=== PATIENT | female | born 1985 | race Hispanic/Latino ===

== ENCOUNTER 2020-05-04 12:45 | Emergency (ER) | payer BC ==
[~2020-05-04] VITALS: Ht 170.2 cm; Wt 113.4 kg
[2020-05-04] MEDS ORDERED: IBUPROFEN 600 MG TAB PO NR (13:19)
[2020-05-04] MEDS ORDERED: IBUPROFEN 600 MG TAB ONE (13:35)
--- NOTE | 2020-05-04 14:02 | Diagnostic Imaging Report ---
FOOT 3 VIEW RT - HOPD, ANKLE 2 VIEW RT - HOPD - Multiple views HISTORY: ^fall COMPARISON: None available. FINDINGS: Bones: No acute displaced fracture. Osseous alignment is within normal limits. Joints: The joint spaces are well-maintained. Soft tissues: The soft tissues appear unremarkable. IMPRESSION: No acute radiographic abnormality. Signed by: Derek Pierce MD on 05/04/2020 1:58 PM
--- NOTE | 2020-05-04 14:31 | Emergency Department Note ---
History of Present Illnes History of Present Illness Chief Complaint: Extremity Trauma/Pain History of Present Illness This is a 34 year old female Chief Complaint Comment Reports that he fell from standing onto the floor after tripping and falling, unwitnessed fall at home. Family heard a loud thump and found him on the floor, family gave him a tramadol last night and it makes him a little confused. Family states that he was confused this morning and did not know what he was doing. Pt is now having lower back pain. . Historian: Patient Arrival Mode: Car Onset (how long ago): day(s) (1) Location: RIGHT ANKLE Quality: SHARP Radiation: Denies non-radiation, Denies back, Denies neck, Denies extremity, Denies abdomen, Denies periumbilical, Denies flank, Denies proximal, Denies distal, Denies other Severity: moderate Onset quality: sudden Duration (how long): day(s) (1) Timing of current episode: constant Progression: worsening Chronicity: new Context: Denies recent illness, Denies recent surgery, Denies recent immobilization, Denies recent travel, Denies trauma/injury, Denies new medications, Denies hx of DVT/PE, Denies non-compliance w/ medications, Denies other Relieving factors: rest Exacerbating factors: movement Associated symptoms: Denies denies other symptoms, Denies confusion, Denies chest pain, Denies cough, Denies diaphoresis, Denies fever/chills, Denies headaches, Denies loss of appetite, Denies malaise, Denies nausea/vomiting, Denies rash, Denies seizure, Denies shortness of breath, Denies syncope, Denies weakness, Denies other Treatments prior to arrival: none Past Medical/Family History Physician Review I have reviewed the patient's past medical and family history. Any updates have been documented here. Past Medical History Recent Fever: No Clinical Suspicion of Infectio: No New/Unexplained Change in Ment: No Past Medical History: None Past Surgical History: Cholecysctectomy, Social History Smoking Cessation: Never Smoker Counseling Performed: No Alcohol Use: Occasional Any Illegal Drug Use: No Physically hurt or threatened: No Other Any Pre-Existing Lines (PICC,: No Review of Systems Review of Systems Constitutional: Reports no symptoms EENTM: Reports no symptoms Cardiovascular: Reports no symptoms Respiratory: Reports no symptoms Gastrointestinal: Reports no symptoms Genitourinary: Reports no symptoms Musculoskeletal: Reports as per HPI Integumentary: Reports no symptoms Neurological: Reports no symptoms Psychological: Reports no symptoms Endocrine: Reports no symptoms Hematological/Lymphatic: Reports no symptoms Physical Exam Related Data Allergies: Coded Allergies: hydrocodone (Verified Allergy, Unknown, made her go crazy and out of her body experience, 05/04/20) can take tylenol ketamine (Verified Allergy, Unknown, 05/04/20) latex (Verified Allergy, Unknown, 05/04/20) Triage Vital Signs Vital Signs Date Time Temp Pulse Resp B/P (MAP) Pulse Ox O2 Delivery O2 Flow Rate FiO2 05/04/20 12:55 98.8 87 18 117/69 98 Room Air Vital signs reviewed: Yes Physical Exam CONSTITUTIONAL Constitutional: Present well-developed, Present well-nourished HENT HENT: Present normocephalic, Present atraumatic, Present oropharynx clear/mois t, Present nose normal HENT L/R: Present left ext ear normal, Present right ext ear normal EYES Eyes: Reports PERRL, Reports conjunctivae normal NECK Neck: Present ROM normal PULMONARY Pulmonary: Present effort normal, Present breath sounds normal CARDIOVASCULAR Cardiovascular: Present regular rhythm, Present heart sounds normal, Present capillary refill normal, Present normal rate GASTROINTESTINAL Abdominal: Present soft, Present nontender, Present bowel sounds normal GENITOURINARY Genitourinary: Present exam deferred SKIN Skin: Present warm, Present dry MUSCULOSKELETAL Musculoskeletal: Present other (TENDERNESS RIGHT ANKLE) NEUROLOGICAL Neurological: Present alert, Present oriented x 3, Present no gross motor or sensory deficits PSYCHOLOGICAL Psychological: Present mood/affect normal, Present judgement normal Results Imaging Imaging results reviewed: Yes Procedures Orthopedic Splinting/Casting Side: right Lower extremity injury locatio: ankle Lower extremity immobilizer: posterior splint Assessment & Plan Medical Decision Making MDM FDRACTURE CONTUSION Reassessment Reassessment BETTER Assessment & Plan Final Impression: (1) Acute pain due to trauma (2) Right ankle sprain Depart Disposition: HOME, SELF-CARE Last Vital Signs Date Time Temp Pulse Resp B/P (MAP) Pulse Ox O2 Delivery O2 Flow Rate FiO2 05/04/20 12:55 98.8 87 18 117/69 98 Room Air Medications in the ED Ibuprofen 600 mg ONCE PO Last administered on 05/04/20at 13:42; Admin Dose 600 MG; Start 9/6/20 at 13:19; Stop 05/04/20 at 14:59 Ibuprofen 600 mg STK-MED ONCE .ROUTE ; Start 05/04/20 at 13:35; Stop 05/04/20 at 13:29; Status DC YUMIKO DEL ANGEL MD May 04, 2020 14:31
[2020-05-04] MEDS ORDERED: NAPROSYN500 MG PO (14:32)
--- OUTSIDE RECORDS SUMMARY | 2020-05-04 14:38 | XMS REPORT | Continuity of Care Document ---
Author Author [facility] t Organization [facility] Address 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 Allergies, Adverse Reactions, Alerts Allergy Name Allergy Type Status Severity Reaction(s) Onset Date Inacti ve Date Treating Clinician Comments Source hydrocodone DA Active U 2019-05-06 00:00:00 [facility] ketamine DA Active U 2019-05-06 00:00:00 [facility] latex DA Active U 2019-05-06 00:00:00 [facility] hydrocodone DA Active U 2018-03-27 00:00:00 [facility] acetaminophen DA Active U 2018-03-27 00:00:00 [facility] ketamine DA Active U 2018-03-27 00:00:00 [facility] latex DA Active U 2018-03-27 00:00:00 [facility] Medications This patient has no known medications. Procedures This patient has no known procedures. Results Test Description Test Time Test Comments Results Result Comments Source ANKLE 2 VIEW RT - HOPD 2020-05-04 13:57:00 [facility] [address] [place], [place] [address] Patient Name: PROSPER FREEMAN MR #: [id number] : 1985 Age/Sex: 34/F Req #: [id number] Adm Physician: Ordered by: YUMIKO DEL ANGEL MD Report #: [id number] Location: [facility] Room/Bed: Procedure: HOPD/ANKLE 2 VIEW RT - HOPD Exam Date: Exam Time: REPORT STATUS: Signed FOOT 3 VIEW RT - HOPD, ANKLE 2 VIEW RT - HOPD - Multiple views HISTORY: fall COMPARISON: None available. FINDINGS: Bones: No acute displaced fracture. Osseous alignment is within normal limits. Joints: The joint spaces are well- maintained. Soft tissues: The soft tissues appear unremarkable. IMPRESSION: No acute radiographic abnormality. Signed by: Derek Cuello MD on 05/04/2020 1:58 PM Dictated By: DEREK CUELLO MD [id number] Transcribed By: CORETTA on 05/04/20 1350 COPY TO: YUMIKO DEL ANGEL MD FOOT 3 VIEW RT - HOPD 2020-05-04 13:57:00 [place] [address] Patient Name: PROSPER FREEMAN MR #: [id number] : 1985 Age/Sex: 34/F Req #: [id number] Adm Physician: Ordered by: YUMIKO DEL ANGEL MD Report #: [id number] Location: [facility] Room/Bed: Procedure: HOPD/FOOT 3 VIEW RT - HOPD Exam Date: Exam Time: REPORT STATUS: Signed FOOT 3 VIEW RT - HOPD, ANKLE 2 VIEW RT - HOPD - Multiple views HISTORY: fall COMPARISON: None available. FINDINGS: Bones: No acute displaced fracture. Osseous alignment is within normal limits. Joints: The joint spaces are well- maintained. Soft tissues: The soft tissues appear unremarkable. IMPRESSION: No acute radiographic abnormality. Signed by: Derek Cuello MD on 05/04/2020 1:58 PM Dictated By: DEREK CUELLO MD 1350 Transcribed By: CORETTA on 05/04/20 1358 COPY TO: YUMIKO DEL ANGEL MD - XR CHEST 1 V 2019-10-24 02:04:00 FAX: Maliha Kang MD [phone] [place]: St: REG FAX: Agnieszka Calixto Name: PROSPER FREEMAN [facility] : 1985 Age/S: 33/F [address] [facility] Unit #: [id number] Loc: [place] [address] Phys: Agnieszka Calixto NP Acct: [id number] Dis Date: Status: REG ER PHONE #: [phone] Exam Date: 10/24/2019 0142 FAX #: [phone] Reason: cough EXAMS: CPT CODE: [id number] XR CHEST 1 V 00471 DICTATION LOCATION: H48 HISTORY: Female, 33 years of age with cough for one month EXAM: CHEST X-RAY, ONE VIEW COMPARISON: Correlation made with thoracic spine x-rays performed 03/27/2018 COMMENT: Frontal view of the chest is provided. No focal infiltrate, consolidation, mass lesion, or effusion is seen. Cardiac silhouette is within normal limits. No acute bony abnormalities. IMPRESSION: No acute infiltrate or effusion. at 0204 Reported and signed by: Nikole Lane MD CC: Maliha Chinchilla MD; Casandra Calixto NP Technologist: Khadra Jade Trnnvrd Date/Time/By: 10/24/2019 (203) : By: DerekW Orig Print D/T: S: 10/24/2019 (207) PAGE 1 Signed Report [facility] 2019-05-11 16:41:00 RUN DATE: 05/11/19 [facility] PAGE 1 RUN TIME: 1642 Specimen Inquiry RUN USER: INTERFACE PATIENT: PROSPER FREEMAN LOC: JaysonSRG U #: [id number] AGE/SX: 33/F ROOM: RE05/10/19REG DR: Marissa Miramontes MD : [birth year] BED: DIS: STATUS: DEP SD TLOC: SPEC #: [id number] RECD: 05/10/19 STATUS: LIZ REZaria #: [id number] PING: 05/10/[address]: Marissa Miramontes MD ENTERED: 05/10/19 SP TYPE: GALLBLADD OTHR DR: Maliha Chinchilla MD ORDERED: GROSS COPIES TO: Marissa Miramontes MD [address] [place], [place] [id number] Maliha Chinchilla MD [address] [place] [address] DUKE RKERS: ABNORMAL TISSUE, GALLBLADDER PROCEDURES: GROSS (05/11/19-1206) TISSUES: GALLBLADDER, NOS CLINICAL HISTORY COLLECTION DATE: 05/10/19 BILIARY COLIC FINAL DIAGNOSIS Gallbladder, cholecystectomy: CHOLELITHIASIS CHRONIC CHOLECYSTITIS CHOLESTEROLOSIS NEGATIVE FOR MALIGNANCY DMW/sm A 85050 CONTINUED ON NEXT PAGE RUN DATE: 05/11/19 [facility] PAGE 2 RUN TIME: 2 Specimen Inquiry RUN USER: INTERFACE SPEC #: [id number] PATIENT: PROSPER FREEMAN #[id number] (Continued) MACROSCOPIC The specimen is received in formalin, labeled with the patient's name, and identified as "gallbladder". It consists of a gallbladder that has been previously incised along the fundus. The specimen measures 6 cm in length with a diameter up to 2.7 cm. A 1.3 cm segment of duct is present. No lymph node is identified at the neck of the gallbladder. Nine green mixed composition stones are present in the specimen container. These measure up to 0.7 cm in diameter. The mucosal surface is pink with numerous yellow flecks and areas of trabeculation in the distal fundus. The gallbladder wall measures up to 0.2 cm in thickness. No discrete nodules or masses are seen. 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 GROSS PERFORMED AT [facility] [address] [place] [address] [phone])[phone] MICROSCOPIC All of the stains, including any controls performed, stain appropriately. MICROSCOPIC PERFORMED AT [facility] [address] [place] [address] [phone])[phone] PERFORMING SITE Diagnosis performed at: [facility], ALONSO [address] [place] [address] [phone] Signed SIGNATURE ON FILE Lorena Guerrero MD 05/11/19 1641 END OF REPORT UR HCG QUAL 2019-05-10 07:13:00 Test Item UR HCG QUAL (test code = HCGQLU) NEGATIVE This HCGQL test is NOT applicable for MALE patients.Check with nurse about probable order error.If Tumor Marker Test needed, nurse should order test "HCGTU"(Test #550.65725) BASIC METABOLIC [id number] 19:28:00* Test Item Value Reference Range Interpretation Comments SODIUM (test code = NA) 144 mmol/L 136-145 N POTASSIUM (test code = K) 4.0 mmol/L 3.5-5.1 N CHLORIDE (test code = CL) 109.0 mmol/L 98-107 H CARBON DIOXIDE (test code = CO2) 26.0 mmol/L 21-32 N ANION GAP (test code = GAP) 13.0 10-20 N GLUCOSE (test code = GLU) 97 mg/dL 74-106 N BLOOD UREA NITROGEN (test code = BUN) 11 mg/dL 7-18 N GLOMERULAR FILTRATION RATE (test code = GFR) > 60 mL/min >=60 Estimated GFR by using Modified MDRD formula.Chronic kidney disease is defined as either kidney damageor GFR <60 mL/min/1.73 m2 for >3 months. CREATININE (test code = CREAT) 0.60 mg/dL 0.55-1.02 N Note change in reference range due to change in reagent. BUN/CREATININE RATIO (test code = BUN/CREA) 17.0 10-20 N CALCIUM (test code = CA) 9.0 mg/dL 8.5-10.1 N HEPATIC FUNCTION [id number] 19:28:00* Test Item Value Reference Range Interpretation Comments TOTAL PROTEIN (test code = PROT) 7.2 gram/dL 6.4-8.2 N ALBUMIN (test code = ALB) 3.4 g/dL 3.4-5.0 N GLOBULIN (test code = GLOB) 3.8 gram/dL 2.7-4.2 N ALBUMIN/GLOBULIN RATIO (test code = A/G) 0.9 0.75-1.50 N BILIRUBIN TOTAL (test code = BILT) 0.30 mg/dL 0.0-1.0 N BILIRUBIN DIRECT (test code = BILD) 0.13 mg/dL 0.0-0.20 N SGOT/AST (test code = AST) 61 IUnit/L 15-37 H SGPT/ALT (test code = ALT) 147 IUnit/L 12-78 H ALKALINE PHOSPHATASE TOTAL (test code = ALKP) 84 IUnit/L 45-117 N Note change in reference range due to change in reagent. [id number] 19:28:00* Test Item Value Reference Range Interpretation Comments LIPASE (test code = LIP) 102 U/L 73.0-393.0 N HCG SERUM [id number] 19:28:00* Test Item Value Reference Range Interpretation Comments HCG SERUM QUAL (test code = HCGQL) NEGATIVE NEGATIVE This HCGQL test is NOT applicable for MALE patients.Check with nurse about probable order error.If Tumor Marker Test needed, nurse should order test "HCGTU"(Test #550.28410) BASIC METABOLIC [id number] 19:25:00* Test Item Value Reference Range Interpretation Comments SODIUM (test code = NA) 144 mmol/L 136-145 N POTASSIUM (test code = K) 4.0 mmol/L 3.5-5.1 N CHLORIDE (test code = CL) 109.0 mmol/L 98-107 H CARBON DIOXIDE (test code = CO2) mmol/L 21-32 ANION GAP (test code = GAP) 10-20 GLUCOSE (test code = GLU) mg/dL 74-106 BLOOD UREA NITROGEN (test code = BUN) mg/dL 7-18 GLOMERULAR FILTRATION RATE (test code = GFR) mL/min >=60 CREATININE (test code = CREAT) mg/dL 0.55-1.02 BUN/CREATININE RATIO (test code = BUN/CREA) 10-20 CALCIUM (test code = CA) mg/dL 8.5-10.1 HEPATIC FUNCTION [id number] 19:25:00* Test Item Value Reference Range Interpretation Comments TOTAL PROTEIN (test code = PROT) gram/dL 6.4-8.2 ALBUMIN (test code = ALB) g/dL 3.4-5.0 GLOBULIN (test code = GLOB) gram/dL 2.7-4.2 ALBUMIN/GLOBULIN RATIO (test code = A/G) 0.75-1.50 BILIRUBIN TOTAL (test code = BILT) mg/dL 0.0-1.0 BILIRUBIN DIRECT (test code = BILD) mg/dL 0.0-0.20 SGOT/AST (test code = AST) IUnit/L 15-37 SGPT/ALT (test code = ALT) IUnit/L 12-78 ALKALINE PHOSPHATASE TOTAL (test code = ALKP) IUnit/L 45-117 [id number] 19:25:00* Test Item Value Reference Range Interpretation Comments LIPASE (test code = LIP) U/L 73.0-393.0 HCG SERUM [id number] 19:25:00* Test Item Value Reference Range Interpretation Comments HCG SERUM QUAL (test code = HCGQL) NEGATIVE NEGATIVE This HCGQL test is NOT applicable for MALE patients.Check with nurse about probable order error.If Tumor Marker Test needed, nurse should order test "HCGTU"(Test #550.82880) BASIC METABOLIC [id number] 19:20:00* Test Item Value Reference Range Interpretation Comments SODIUM (test code = NA) 144 mmol/L 136-145 N POTASSIUM (test code = K) 4.0 mmol/L 3.5-5.1 N CHLORIDE (test code = CL) 109.0 mmol/L 98-107 H CARBON DIOXIDE (test code = CO2) mmol/L 21-32 ANION GAP (test code = GAP) 10-20 GLUCOSE (test code = GLU) mg/dL 74-106 BLOOD UREA NITROGEN (test code = BUN) mg/dL 7-18 GLOMERULAR FILTRATION RATE (test code = GFR) mL/min >=60 CREATININE (test code = CREAT) mg/dL 0.55-1.02 BUN/CREATININE RATIO (test code = BUN/CREA) 10-20 CALCIUM (test code = CA) mg/dL 8.5-10.1 HEPATIC FUNCTION [id number] 19:20:00* Test Item Value Reference Range Interpretation Comments TOTAL PROTEIN (test code = PROT) gram/dL 6.4-8.2 ALBUMIN (test code = ALB) g/dL 3.4-5.0 GLOBULIN (test code = GLOB) gram/dL 2.7-4.2 ALBUMIN/GLOBULIN RATIO (test code = A/G) 0.75-1.50 BILIRUBIN TOTAL (test code = BILT) mg/dL 0.0-1.0 BILIRUBIN DIRECT (test code = BILD) mg/dL 0.0-0.20 SGOT/AST (test code = AST) IUnit/L 15-37 SGPT/ALT (test code = ALT) IUnit/L 12-78 ALKALINE PHOSPHATASE TOTAL (test code = ALKP) IUnit/L 45-117 [id number] 19:20:00* Test Item Value Reference Range Interpretation Comments LIPASE (test code = LIP) U/L 73.0-393.0 HCG SERUM [id number] 19:20:00* Test Item Value Reference Range Interpretation Comments HCG SERUM QUAL (test code = HCGQL) NEGATIVE - US ABDOMEN [id number] 19:06:00 Name: PROSPER FREEMAN [facility] : 1985 Age/S: 33 / F [address] Unit #: [id number] Loc: [place] [address] Phys: Agnieszka Calixto NP Acct: [id number] Dis Date: Status: REG ER PHONE #: [phone] Exam Date: 05/06/2019 1835 FAX #: [phone] Reason: Abdominal Pain EXAMS: CPT CODE: [id number] [facility] ABDOMEN [facility] [address] EXAM: Ultrasound abdomen, limited; INFORMATION: Abdominal pain; FINDINGS: The liver is enlarged and shows diffusely increased parenchymal echogenicity. No focal lesions. The gallbladder is of normal diameter and wall thickness; it contains multiple stones. No dilatation of intra or extrahepatic bile ducts. The pancreas is largely obscured by bowel gas; no obvious lesions. No ascites. The right kidney is of normal size and shape; no hydronephrosis, no stones and no parenchymal abnormalities. The right kidney measures 12.3 x 4.5 x 4.6 cm. Imaged portions of the IVC and abdominal aorta are unremarkable. IMPRESSION: 1. Cholecystolithiasis. 2. Fatty liver. at 1906 Reported and signed by: Tonny Mckeon M.D. CC: Maliha Chinchilla MD; Dom Mesa MD; Agnieszka Calixto NP Technologist: CHARLIE ROMO Trnnvb Date/Time: 05/06/2019 (1905) Rudy Orig Print D/T: S: 05/06/2019 (1908) Probe: PAGE 1 Signed Report CBC W/O [id number] 19:03:00* Test Item Value Reference Range Interpretation Comments WHITE BLOOD CELL (test code = WBC) K/mm3 4.5-12.5 RED BLOOD CELL (test code = RBC) mill/mm3 3.7-5.2 HEMOGLOBIN (test code = HGB) 13.2 gram/dL 11.5-15.5 N HEMATOCRIT (test code = HCT) 39.6 % 36.0-46.0 N MEAN CELL VOLUME (test code = MCV) fL 80-98 MEAN CELL HGB (test code = MCH) picogram 27.0-33.0 MEAN CELL HGB CONCETRATION (test code = MCHC) gram/dL 33.0-36. 0 RED CELL DISTRIBUTION WIDTH (test code = RDW) % 11.6-16. 2 PLATELET COUNT (test code = PLT) K/mm3 150-450 MEAN PLATELET VOLUME (test code = MPV) fL 6.7-11.0 CBC W/O [id number] 19:03:00* Test Item Value Reference Range Interpretation Comments WHITE BLOOD CELL (test code = WBC) 11.2 K/mm3 4.5-12.5 N RED BLOOD CELL (test code = RBC) 4.25 mill/mm3 3.7-5.2 N HEMOGLOBIN (test code = HGB) 13.2 gram/dL 11.5-15.5 N HEMATOCRIT (test code = HCT) 39.6 % 36.0-46.0 N MEAN CELL VOLUME (test code = MCV) 93.2 fL 80-98 N MEAN CELL HGB (test code = MCH) 31.1 picogram 27.0-33.0 N MEAN CELL HGB CONCETRATION (test code = MCHC) 33.3 gram/dL 33.0-36. 0 N RED CELL DISTRIBUTION WIDTH (test code = RDW) 12.6 % 11.6-16. 2 N PLATELET COUNT (test code = PLT) 305 K/mm3 150-450 N MEAN PLATELET VOLUME (test code = MPV) 9.6 fL 6.7-11.0 N URINALYSIS [id number] 18:31:00* Test Item Value Reference Range Interpretation Comments UA COLOR (test code = COLU) COLORLESS YELLOW A UA APPEARANCE (test code = APPU) CLEAR CLEAR UA GLUCOSE DIPSTICK (test code = DGLUU) NEGATIVE mg/dL NEGATIVE UA BILIRUBIN DIPSTICK (test code = BILU) NEGATIVE mg/dL NEGATIVE UA KETONE DIPSTICK (test code = KETU) NEGATIVE mg/dL NEGATIVE UA SPECIFIC GRAVITY (test code = SGU) 1.009 1.001-1.035 UA BLOOD DIPSTICK (test code = MICHAEL) Negative mg/dL NEGATIVE UA PH DIPSTICK (test code = ANNE) 6.0 5.0-8.0 UA PROTEIN DIPSTICK (test code = PROU) NEGATIVE mg/dL NEGATIVE UA UROBILINIOGEN DIPSTICK (test code = URO) Normal mg/dL NEGATIVE UA NITRITE DIPSTICK (test code = MARY) NEGATIVE NEGATIVE UA LEUKOCYTE ESTERASE W REFLEX (test code = LEUUR) NEGATIVE Parris/uL NEGATIVE UA WBC (test code = WBCU) 0-5 per HPF 0-5 UA RBC (test code = RBCU) 0-2 #/HPF 0-5 UA EPITHELIAL CELLS (test code = EPIU) FEW per HPF FEW UA BACTERIA (test code = BACU) FEW #/HPF NONE A Urine Source? Clean Catch
== END 2020-05-04 14:57 | disposition home or self-care (01) ==
LOC: FSED 13:25
DX: S93.401A Sprain of unspecified ligament of right ankle, initial encounter (principal); M54.5 Low back pain; W01.0XXA Fall on same level from slipping, tripping and stumbling without subsequent striking against object, initial encounter; Y92.008 Other place in unspecified non-institutional (private) residence as the place of occurrence of the external cause
CPT/HCPCS: 99284